=== PATIENT | male | born 1960 | race Caucasian/White ===

== ENCOUNTER 2021-08-13 11:54 | Day surgery (SDC) | payer OTHER ==
--- OUTSIDE RECORDS SUMMARY | 2021-08-13 11:56 | XMS REPORT | Continuity of Care Document ---
:[address] [facility] t Address [address] [place] [address] Care Team Providers Name Role Phone RADHA Attending Clinician Unavailable BAYLEE Attending Clinician Unavailable СВЕТЛАНА BARNETT Attending Clinician Unavailable Problems This patient has no known problems. Allergies, Adverse Reactions, Alerts This patient has no known allergies or adverse reactions. Medications This patient has no known medications. Procedures This patient has no known procedures. Encounters Start End Encounter Admission Attending Care Care Encounter Source Date/Time Date/Time Type Type Clinicians Facility Department ID 2020-12-27 2020-12-27 Outpatient [facility] [id number] [address] 00:00:00 00:00:00 ANA [address] 2020-12-07 2020-12-07 Outpatient [facility] [id number] [address] 00:00:00 00:00:00 ANA [address] 2020-12-01 2020-12-01 Outpatient [facility] [id number] [address] 00:00:00 00:00:00 ANA [address] 2020-11-29 2020-11-29 Outpatient [facility] [id number] [address] 00:00:00 00:00:00 ANA [address] 2020-11-25 2020-11-25 Outpatient [facility] [id number] [address] 00:00:00 00:00:00 ANA [address] 2020-11-17 2020-11-17 Outpatient [facility] [id number] [address] 00:00:00 00:00:00 ANA [address] 2020-10-29 2020-10-29 Outpatient GARCIA, [facility] [id number] 00:00:00 00:00:00 ANA [address] 2020-10-29 2020-10-29 Outpatient GARCIA, [facility] [id number] [address] 00:00:00 00:00:00 ANA [address] 2020-10-25 2020-10-25 Outpatient BAYLEE, [facility] [id number] 00:00:00 00:00:00 JULY [address] 2020-09-28 2020-09-28 Outpatient BAYLEE, [facility] [id number] 00:00:00 00:00:00 JULY [address] 2020-09-07 2020-09-07 Outpatient BAYLEE, [facility] [id number] 00:00:00 00:00:00 JULY [address] 2020-08-25 2020-08-25 Outpatient GARCIA, [facility] [id number] [address] 00:00:00 00:00:00 ANA [address] 2020-08-10 2020-08-10 Outpatient GARCIA, [facility] [id number] [address] 00:00:00 00:00:00 ANA [address] 2020-08-10 2020-08-10 Outpatient GARCIA, [facility] [id number] 00:00:00 00:00:00 ANA [address] 2020-07-15 2020-07-15 Emergency E ANIBAL, [address] 12:22:00 15:04:00 INDERJIT Results This patient has no known results.
[2021-08-13] MEDS ORDERED: MORPHINE 4 MG/ML SYR ONE (12:17)
[2021-08-13] MEDS ORDERED: ONDANSETRON 4 MG/2 ML VIAL ONE ×2 (12:17→16:26)
[2021-08-13] MEDS ORDERED: BUPIVACAINE 0.5% PF 10 ML VIAL ONE (12:32)
[2021-08-13] MEDS ORDERED: LIDOCAINE 1% MPF 5 ML VIAL ONE ×2 (12:32→12:48)
--- NOTE | 2021-08-13 13:45 | EDPHYS ---
Physician Documentation [facility] Name: Zan Huggins Age: 60 yrs Sex: Male : 1960 Arrival Date: 08/13/2021 Time: 11:54 Bed 9 Private MD: ED Physician Rajat Riggs HPI: 08/13 12:30 This 60 yrs old Male presents to ER via Wheelchair with complaints of Finger Injury, cp Laceration. 12:30 The patient or guardian reports injury, a laceration, irregular. cp 12:30 The complaints affect the distal phalanx left middle and fourth fingers. 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 Onset: The symptoms/episode began/occurred just prior to arrival. Associated signs and symptoms: The patient has no apparent associated signs or symptoms. Historical: - Allergies: 11:59 No Known Allergies; iw - PMHx: 11:59 Hypertensive disorder; iw - PSHx: 11:59 back; iw - Immunization history:: Last tetanus immunization: unknown. - Social history:: Smoking status: . ROS: 12:35 Constitutional: Negative for body aches, chills, fever, poor PO intake. cp 12:35 Eyes: Negative for injury, pain, redness, and discharge. cp 12:35 Neck: Negative for pain with movement, pain at rest, stiffness. 12:35 Cardiovascular: Negative for chest pain. 12:35 Respiratory: Negative for cough, shortness of breath, wheezing. 12:35 Abdomen/GI: Negative for abdominal pain, nausea, vomiting, and diarrhea. 12:35 Back: Negative for pain at rest, pain with movement. 12:35 Skin: Positive for laceration(s), of the distal phalanx of left middle and fourth fingers. 12:35 All other systems are negative. Exam: 12:40 Constitutional: The patient appears in no acute distress, alert, awake, non-toxic, well cp developed, well nourished, diaphoretic, uncomfortable. 12:40 Head/Face: Normocephalic, atraumatic. cp 12:40 Eyes: Periorbital structures: appear normal, Conjunctiva: normal, no exudate, no injection, Sclera: no appreciated abnormality, Lids and lashes: appear normal, bilaterally. 12:40 ENT: External ear(s): are unremarkable, Nose: is normal, Mouth: Lips: moist, Oral mucosa: moist, Posterior pharynx: Airway: no evidence of obstruction, patent. 12:40 Neck: ROM/movement: is normal, is supple, without pain, no range of motions limitations. 12:40 Chest/axilla: Inspection: normal, Palpation: is normal, no crepitus, no tenderness. 12:40 Cardiovascular: Rate: normal, Rhythm: regular, Pulses: Pulses are 2+ in left radial artery. 12:40 Respiratory: the patient does not display signs of respiratory distress, Respirations: normal, no use of accessory muscles, no retractions, labored breathing, is not present, Breath sounds: are clear throughout, no decreased breath sounds. 12:40 Abdomen/GI: Exam negative for discomfort, distension, guarding, Inspection: abdomen appears normal. 12:40 Back: pain, is absent, ROM is normal. 12:40 Musculoskeletal/extremity: Extremities: grossly normal except: noted in the distal phalanx left middle finger: deformity, partial amputation with extension into nail bed, nail almost completely avulsed, noted in the distal phalanx left fourth finger distal to nail: laceration, Perfusion: the extremity is intact, the left middle and fourth fingers Sensation intact. 2 point discrimination intact 12:40 Neuro: Orientation: to person, place \\T\\ time. Mentation: is normal. 13:53 ECG was reviewed by the Attending Physician. Vital Signs: 11:59 BP 137 / 99; Pulse 62; Resp 16; Temp 96.9; Pulse Ox 96% on R/A; iw MDM: 12:19 Patient medically screened. cp 12:30 Differential diagnosis: dislocation, open fracture, closed fracture, amputation. cp 13:05 Data reviewed: vital signs, nurses notes, radiologic studies, plain films. cp 13:05 Test interpretation: by ED physician or midlevel provider: plain radiologic studies. cp Counseling: I had a detailed discussion with the patient and/or guardian regarding: the historical points, exam findings, and any diagnostic results supporting the discharge/admit diagnosis, radiology results. 13:08 Physician consultation: Stiven Metcalf MD was called at 13:08, unable to leave message cp and no answer. 13:45 Physician consultation: Stiven Metcalf MD was contacted at 13:40, regarding patient's cp condition, will admit patient for surgical repair of partial amputation of left third finger. 08/13 13:46 Order name: Basic Metabolic Panel cp 08/13 13:46 Order name: CBC with Diff cp 08/13 13:46 Order name: Type And Screen cp 08/13 13:46 Order name: PT-INR cp 08/13 13:46 Order name: Ptt, Activated cp 08/13 15:26 Order name: SARS-COV-2 RT PCR (Document "Date of Onset" if Symptomatic) em1 08/13 12:21 Order name: XRAY Hand LEFT 3 View cp 08/13 13:46 Order name: XRAY Chest (1 view) cp 08/13 13:42 Order name: Wound Care: please clean and irrigate wound, wet to dry dressing cp 08/13 13:46 Order name: Labs collected and sent; Complete Time: 14:27 cp EC:53 Rate is 65 beats/min. Rhythm is regular. VA interval is normal. QRS interval is normal. cp QT interval is normal. T waves are Inverted in lead aVR. Interpreted by me. Reviewed by me. Administered Medications: 12:17 Drug: morphine 4 mg Route: IVP; Site: right antecubital; iw 12:35 Follow up: Response: No adverse reaction; Pain is decreased iw 12:17 Drug: Zofran (Ondansetron) 4 mg Route: IVP; Site: right antecubital; iw 12:30 Follow up: Response: No adverse reaction iw 13:00 Drug: Lidocaine (1 %) 10 ml Volume: 20 ml; Route: Infiltration; iw 13:00 Drug: Marcaine (bupivacaine) (0.5 %) 10 ml Volume: 10 ml; Route: Infiltration; iw 13:55 Drug: Tetanus-Diphtheria Toxoid Adult 0.5 ml {Columnist: [employer]. Exp: iw 06/11/2023. Lot #: [id number]. } Route: IM; Site: right deltoid; 14:10 Follow up: Response: No adverse reaction iw 13:55 Drug: Ancef (cefazolin) 1 grams Route: IVPB; Site: right antecubital; iw 14:00 Follow up: IV Status: Completed infusion iw 19:35 Not Given (Physician Discretion): NS 0.9% 1000 ml IV at 125 ml/hr continuous iw Disposition: 18:02 Co-signature as Attending Physician, Rajat Riggs MD. ma2 Disposition Summary: 08/13/21 13:45 Hospitalization Ordered Hospitalization Status: Observation cp Provider: Stiven Metcalf cp Location: Operating Room cp Condition: Stable cp Problem: new cp Symptoms: have improved cp Bed/Room Type: Standard cp Room Assignment: cp Diagnosis - Laceration without foreign body of left middle finger with damage to nail cp - Laceration without foreign body of left ring finger without damage to nail cp Discharge Instructions: - Discharge Summary Sheet cp Forms: - Medication Reconciliation Form cp - SBAR form cp Prescriptions: - Tylenol-Codeine #3 300 mg-30 mg Oral - take 2 tablet by ORAL route every 6-8 hours; 20 tablet; Refills: 0, Product cp Selection Permitted Signatures: Dispatcher [employer] Yajaira Downey RN RN iw Dustin Franco PA PA cp Alzahri, Mohammad, MD MD ma2
--- NOTE | 2021-08-13 13:45 | ER ---
Nurse's Notes [facility] Name: Zan Huggins Age: 60 yrs Sex: Male : 1960 Arrival Date: 08/13/2021 Time: 11:54 Bed 9 Private MD: Diagnosis: Laceration without foreign body of left middle finger with damage to nail;Laceration without foreign body of left ring finger without damage to nail Presentation: 08/13 11:58 Chief complaint: Patient states: cut left middle finger with crap shooter blade , still iw attached but hanging. Coronavirus screen: At this time, the client does not indicate any symptoms associated with coronavirus-19. Ebola Screen: Patient negative for fever greater than or equal to 101.5 degrees Fahrenheit, and additional compatible Ebola Virus Disease symptoms Patient denies exposure to infectious person. Patient denies travel to an Ebola-affected area in the 21 days before illness onset. No symptoms or risks identified at this time. Initial Sepsis Screen: Does the patient meet any 2 criteria? No. Patient's initial sepsis screen is negative. Does the patient have a suspected source of infection? No. Patient's initial sepsis screen is negative. Risk Assessment: Do you want to hurt yourself or someone else? Patient reports no desire to harm self or others. Onset of symptoms was August 13, 2021. 11:58 Method Of Arrival: Wheelchair iw 11:58 Acuity: ASHUTOSH 3 iw Historical: - Allergies: 11:59 No Known Allergies; iw - PMHx: 11:59 Hypertensive disorder; iw - PSHx: 11:59 back; iw - Immunization history:: Last tetanus immunization: unknown. - Social history:: Smoking status: . Screenin:00 Abuse screen: Denies threats or abuse. Denies injuries from another. Nutritional iw screening: No deficits noted. Tuberculosis screening: No symptoms or risk factors identified. Fall Risk None identified. Assessment: 12:00 General: Appears distressed, uncomfortable, Behavior is agitated, anxious. Pain: iw Complains of pain in left hand. Neuro: Level of Consciousness is awake, alert, obeys commands, Moves all extremities. Derm: Musculoskeletal: Range of motion: limited in DIP of left middle finger. Injury Description: Laceration sustained to dorsal aspect of distal phalanx of left middle finger and palmar aspect of distal phalanx of left middle finger is full thickness, 0.5 to 2.5 cm long. 14:35 Reassessment: Patient appears in no apparent distress at this time. Patient and/or iw family updated on plan of care and expected duration. Pain level reassessed. Patient is alert, oriented x 3, equal unlabored respirations, skin warm/dry/pink. Patient states feeling better. Patient states symptoms have improved. Vital Signs: 11:59 BP 137 / 99; Pulse 62; Resp 16; Temp 96.9; Pulse Ox 96% on R/A; iw ED Course: 11:54 Patient arrived in ED. am2 11:59 Triage completed. iw 12:00 Yajaira Bains, MARIA is Primary Nurse. iw 12:00 Arm band placed on. iw 12:17 Dustin Franco PA is PHCP. cp 12:17 Rajat Riggs MD is Attending Physician. cp 12:20 Inserted saline lock: 20 gauge in right antecubital area, using aseptic technique. iw 13:43 Stiven Metcalf MD is Hospitalizing Provider. cp 13:54 EKG done, by ED staff, reviewed by Dustin PRICE. em1 14:15 XRAY Hand LEFT 3 View In Process Unspecified. EDMS 14:54 XRAY Chest (1 view) In Process Unspecified. EDMS 15:35 No provider procedures requiring assistance completed. Patient admitted, IV remains in iw place. Administered Medications: 12:17 Drug: morphine 4 mg Route: IVP; Site: right antecubital; iw 12:35 Follow up: Response: No adverse reaction; Pain is decreased iw 12:17 Drug: Zofran (Ondansetron) 4 mg Route: IVP; Site: right antecubital; iw 12:30 Follow up: Response: No adverse reaction iw 13:00 Drug: Lidocaine (1 %) 10 ml Volume: 20 ml; Route: Infiltration; iw 13:00 Drug: Marcaine (bupivacaine) (0.5 %) 10 ml Volume: 10 ml; Route: Infiltration; iw 13:55 Drug: Tetanus-Diphtheria Toxoid Adult 0.5 ml {Partner Marketing Manager: [employer]. Exp: iw 06/11/2023. Lot #: [id number]. } Route: IM; Site: right deltoid; 14:10 Follow up: Response: No adverse reaction iw 13:55 Drug: Ancef (cefazolin) 1 grams Route: IVPB; Site: right antecubital; iw 14:00 Follow up: IV Status: Completed infusion iw 19:35 Not Given (Physician Discretion): NS 0.9% 1000 ml IV at 125 ml/hr continuous iw Medication: 15:00 Vaccine Information Statement (VIS) provided today. Questions and/or concerns iw addressed. VIS edition date: August 14, 2021. Outcome: 13:45 Decision to Hospitalize by Provider. cp 15:35 Admitted to OR accompanied by nurse. iw 15:35 Condition: stable 15:35 Discharge instructions given to patient, family, Instructed on the need for admit. 15:40 Patient left the ED. iw Signatures: Dispatcher [employer] Yajaira Downey RN RN David Granger em1 Dustin Franco PA PA cp Moreno, Amanda am2
[2021-08-13] MEDS ORDERED: TETANUS & DIPHTHERIA TOX,ADULT 0.5 ML VIAL ONE (13:53)
[2021-08-13] MEDS ORDERED: CEFAZOLIN SODIUM 1 GM/VIAL ONE (13:53)
[2021-08-13 14:24] LABS: Absolute Lymphocytes (CBC) 1.6 K/uL (0.7-4.9); Hematocrit 45.6 % (39.6-49.0); Lymphocytes % 8.6 % (15.3-44.8); RBC Red Blood Cell Count 5.21 M/uL (4.33-5.43)
[2021-08-13 14:27] LABS: Protime INR 1.05
--- NOTE | 2021-08-13 14:27 | RAD REPORT ---
EXAM DESCRIPTION: RAD - Hand Left 3 View - 08/13/2021 2:13 pm CLINICAL HISTORY: injury COMPARISON: No comparisons FINDINGS/IMPRESSION: 1. Comminuted fracture of the third distal phalanx involving the tuft and diap hysis. Overlying the soft tissue wound present. No intra-articular extension. Fracture is displaced b y up to 3 millimeters. 2. Nondisplaced fracture of the fourth distal phalangeal tuft. 3. Possible nondisplaced thumb distal phalangeal tuft fracture. 4. Moderate degenerative changes are present at the first carpometacarpal joint.
[2021-08-13 14:38] LABS: Potassium 4.4 mmol/L (3.5-5.1)
--- NOTE | 2021-08-13 15:28 | RAD REPORT ---
EXAM DESCRIPTION: RAD - Chest Single View - 08/13/2021 2:52 pm CLINICAL HISTORY: pre op COMPARISON: CHEST PA AND LAT 2 VIEW dated 03/03/2015; CHEST SINGLE VIEW dated 07/15/2012 FINDINGS: Lines: None. Lungs: No evidence of edema or pneumonia. Pleural: No significant pleural effusions or pneumothorax. Cardiac: The heart size is within normal limits. Bones: No acute fractures. Other: IMPRESSION: No acute cardiopulmonary disease.
[2021-08-13] MEDS ORDERED: Ringers Lactate 1,000 ML IV ONE (15:30)
[2021-08-13] MEDS ORDERED: NA CIT/CITRIC AC 30 ML ORAL UDC ONE (15:56)
[2021-08-13 16:00] LABS: Blood Morphology Comment NOT SEEN (NOT SEEN); Platelet Estimate ADEQ; White Blood Cell Scan OK (OK)
[2021-08-13] MEDS ORDERED: propofoL 200 MG/20 ML VIAL IV ONE (16:00)
[2021-08-13] MEDS ORDERED: FENTANYL CITR 100 MCG/2 ML ONE ×2 (16:00→16:42)
[2021-08-13] MEDS ORDERED: LIDOCAINE 2% MPF 5 ML VIAL ONE (16:01)
[2021-08-13] MEDS ORDERED: dexAMETHasone 10 MG/ML VIAL ONE (16:26)
[2021-08-13] MEDS ORDERED: KETOROLAC 30 MG/ML INJ ONE (16:26)
[2021-08-13] MEDS ORDERED: GLYCOPYRROLATE 0.2 MG/ML SYR ONE (16:45)
[2021-08-13] MEDS ORDERED: Phenylephrine HCl 10 MG/ML 1 ML VIAL ONE (16:49)
[2021-08-13] MEDS: HYDROMORPHONE HCL 1 MG/ML INJ ONE ×6 (17:17→17:50)
[2021-08-13] MEDS ORDERED: NALOXONE 0.4 MG/ML VIAL ONE (17:18)
[2021-08-13] MEDS ORDERED: CODEINE 30MG/APAP 300MG TAB ONE (18:19)
[2021-08-13 18:27] VITALS: BP 120/93; TEMP 97.7; O2SAT 97
--- NOTE | 2021-08-14 05:56 | HP ---
Date of Admission: 08/13/2021 History Of Present Illness: The patient is a 60-year-old white male, right-hand dominant, who put hi s left middle and ring fingers in the lawnmower blade today. Tetanus toxoid was given in the ER, his tory of hypertension. He had a previous cyst from his spine removed. blood pressure medi cation. Physical Examination: He sustained an oblique laceration through the nail plate area and tip of the wound of the left ring and middle. X-ray shows fractures of the tip. Assessment: Open fracture of the tip of the ring and middle fingers for orthopedic repair. ROSIE/DESIRAE Voice ID: [id number]
[2021-08-14] MEDS ORDERED: CODEINE 30MG/APAP 300MG TAB PO PRN (08:09)
--- NOTE | 2021-08-15 10:08 | EKG ---
Test Date: 2021-08-13 Test Time: 13:47:38 Fisher Spear: LOLITA MEASUREMENT RESULTS: Intervals: Rate: 65 WY: 154 QRSD: 98 QT: 394 QTc: 409 [place]: P: 55 WY: 154 QRS: 47 T: 29 INTERPRETIVE STATEMENTS: Normal sinus rhythm Normal ECG Compared to ECG 10/20/2016 17:05:57 No significant changes Electronically Signed On 08-15-21 10:02:59 CDT by Albin Morales
--- NOTE | 2021-08-15 12:33 | OP ---
Surgeon: Stiven Metcalf MD Preoperative Diagnosis: Open fracture of the distal phalanx of the ring and middle finger, left hand . Postoperative Diagnosis: Open fracture of the distal phalanx of the ring and middle finger, left chavez byers. Procedure Performed: 1.Debridement of skin and subcu, open reduction and internal fixation of the distal phalanx of the r ing and middle distal phalanx. 2.Nail bed repair, ring and middle. 3.Simple closure of 3 cm and 2 cm of distal phalanx ring and middle. Anesthesia: General. Description Of Procedure: After satisfactory induction of general anesthesia, the left hand was prep ped with Betadine scrub, Betadine paint, dry sterile drapes were applied in the usual manner. The ar m was elevated, exsanguinated with an Esmarch, tourniquet inflated to 250 mmHg. Hand placed on Roto Lock table. The nail plates were removed with the periosteal elevator, and then the skin edges were debrided, then bones debrided with a rongeur, and shortened on the middle finger. When this was done , jet lavage was performed. Then, the patient underwent ORIF with placement of from proxi mal to distal of the fracture, then from distal to proximal, and also after this was done in the DIP joint this was done in both fingers. After this was done and then the nailbed was repaired with 6-0 PDS. The skin was closed with 4-0 Prolene simple sutures. The nail plate was sewn back distally wit h 4-0 Prolene in simple closure, and then the tourniquet was released. Dressed with Xeroform, 2-inch Luiza, and a splint holding the PIP and DIP in extension the ring and middle fingers. The patient tolerated the procedure well and was returned to Recovery. ROSIE/DESIRAE Voice ID: [id number] Report ID: [id number]
== END 2021-08-13 18:42 | disposition home or self-care (01) ==
LOC: ER 11:54 → DS 14:57
PROVIDERS: ATTEND Specialist
PROC: 0PSV04Z Reposition Left Finger Phalanx with Internal Fixation Device, Open Approach (ICD-10-PCS; 2021-08-13)
PROC: 0PSV04Z Reposition Left Finger Phalanx with Internal Fixation Device, Open Approach (ICD-10-PCS; 2021-08-13)
PROC: 0PSV04Z Reposition Left Finger Phalanx with Internal Fixation Device, Open Approach (ICD-10-PCS; principal; 2021-08-13 16:00)
DX: S62.633B Displaced fracture of distal phalanx of left middle finger, initial encounter for open fracture (principal); S62.635B Displaced fracture of distal phalanx of left ring finger, initial encounter for open fracture; W31.89XA Contact with other specified machinery, initial encounter; Y93.H9 Activity, other involving exterior property and land maintenance, building and construction; Y92.017 Garden or yard in single-family (private) house as the place of occurrence of the external cause; I10 Essential (primary) hypertension; Z20.822 Contact with and (suspected) exposure to COVID-19
CPT/HCPCS: 26765 ×2; 11012; 93005; 85025; 80048; 36415; 86900; 86850; 85610; 86901; 85730; 71045; 73130; 90471; 90714; 96375; 96374; 99285; U0003; J2704; J2310; J2370; J3010 ×2; J1100; J1170 ×3; J7120; J2405 ×2; J0690